=== PATIENT | male | born 1955 | race Caucasian/White ===

== ENCOUNTER 2021-06-20 03:25 | Emergency (ER) | payer MEDICARE, OTHER, SELFPAY ==
[2021-06-20 03:42] VITALS: BP 137/89; PULSE 94; RESP 18; TEMP 36.9; O2SAT 97
--- NOTE | 2021-06-20 03:46 | ED.MALEGU ---
HPI - Male Genitourinary General Chief complaint: Urogenital-Male Stated complaint: NEED A CATH PUT BACK IN - TAKEN OUT FRIDAY Time Seen by Provider: 06/20/21 03:36 Source: patient History of Present Illness HPI Narrative: Patient presents with difficulty urinating. Patient recently had a Amaral removed for urinary retention he passes voiding trial was doing well the last few this afternoon since that has been able to urinate and tonight had a lot of pressure. He is is concerned for urinary retention and he came to the ER for evaluation denies any fevers, cough, nausea, vomiting, back Related Data Home Medications Medication Instructions Recorded Confirmed Htn Med 03/12/19 Prostate Med 03/12/19 sildenafil [Viagra] 25 mg PO DAILY PRN 03/12/19 03/12/19 Allergies Allergy/AdvReac Type Severity Reaction Status Date / Time No Known Allergies Allergy Unverified 02/16/16 10:50 Review of Systems Review of Systems: CONSTITUTIONAL: Denies fever, chills, or sweats. EYES: Denies visual changes, redness, or discharge. ENT: Denies rhinorrhea, congestion, sore throat, or otalgia. CARDIOVASCULAR: Denies chest pain, palpitations, or edema. RESPIRATORY: Denies cough or dyspnea. GASTROINTESTINAL: Denies nausea, vomiting, or diarrhea. GENITOURINARY: Patient is unable to urinate SKIN: Denies rash or itching. MUSCULOSKELETAL: Denies back pain, joint pain, or myalgia. NEUROLOGIC: Denies headache, numbness, dizziness, or weakness. PSYCHIATRIC: Denies anxiety or depression. All systems reviewed & are unremarkable except as noted in HPI and below PMFSH Family History Family History Father Cerebrovascular accident Family history of coronary artery disease Sibling Family history of malignant neoplasm of cervix Family history of malignant neoplasm of brain Social History Social History Smoking status: Never smoker Alcohol intake: never Exam Narrative: GENERAL: Well-appearing, well-nourished, and in no acute distress. HEAD: Normocephalic, atraumatic. EYES: PERRLA and EOMI. ENT: Nares clear, no rhinorrhea or epistaxis. Mucous membranes moist. NECK: Supple. No masses. No JVD ABDOMEN: Mild tenderness palpation suprapubic area soft, nondistended, normal active bowel sounds. EXTREMITIES: Normal range of motion. No edema. SKIN: Warm, dry, no rash. NEURO: No focal deficits. Alert and oriented x3. PSYCH: Normal mood and affect. Course Vital Signs Vital signs: Vital Signs Temperature 36.9 C 06/20/21 03:42 Pulse Rate 94 06/20/21 03:42 Respiratory Rate 18 06/20/21 03:42 Blood Pressure 137/89 06/20/21 03:42 Pulse Oximetry 97 06/20/21 03:42 Temperature 36.9 C 06/20/21 03:42 Pulse Rate 94 06/20/21 03:42 Respiratory Rate 18 06/20/21 03:42 Blood Pressure 137/89 06/20/21 03:42 Pulse Oximetry 97 06/20/21 03:42 MDM - Male Genitourinary MDM Narrative Medical decision making narrative: H&P as above, vss, pt looks clinically well, exam mild tenderness with palpation suprapubic area, bladder scan showed 500 of fluid additional labs/img considered, symptomatic relief available as needed, Amaral catheter was placed on reevaluation pt continues to looks clinically well and reported large improvement in symptoms. Suspect acute urinary retention likely due to patient's known BPH, dns severe sepsis, pyelonephritis. Patient is already on antibiotics prescribed by his urologist. plan to tx/monitor as op w/ urology f/u findings/plan discussed with pt, pt agree/comfortable with plan, return precautions given Discharge Plan Discharge Clinical Impression: Acute retention of urine Patient Disposition: Home, Self-Care Condition: Improved Instructions: Antibiotic Form, Urinary Retention in Men (ED) Additional Instructions: Please return if your symptoms worsen or fail to improve. If you develop
== END 2021-06-20 04:25 | disposition home or self-care (01) ==
LOC: ANHED 04:03
PROVIDERS: Emergency Provider Emergency Medicine; PCP Family Medicine
DX: R33.9 Retention of urine, unspecified (principal)
CPT/HCPCS: 51702; 99283

== ENCOUNTER 2022-01-09 08:30 | Emergency (ER) | payer MEDICARE, OTHER, SELFPAY ==
[2022-01-09 08:36] VITALS: BP 143/87; PULSE 84; RESP 16; TEMP 36.8; O2SAT 98
--- NOTE | 2022-01-09 08:42 | ED.EXTPRO ---
HPI - Extremity Problem General Chief complaint: Extremity Problem,Nontraumatic Stated complaint: left finger poss infection Time Seen by Provider: 01/09/22 08:45 Source: patient Mode of arrival: ambulatory Limitations: no limitations History of Present Illness HPI Narrative: 66 y/o male presented for c/o left middle finger pain, swelling, redness for one week. Denies injury. Denies ingrown nail or cutting/biting nails or cuticle. Related Data Home Medications Medication Instructions Recorded Confirmed sildenafil 25 mg tablet (Viagra) 25 mg PO DAILY PRN Edema 03/12/19 01/09/22 lisinopril 20 mg tablet 20 mg PO DAILY 01/09/22 01/09/22 tamsulosin 0.4 mg capsule 0.4 mg PO DAILY 01/09/22 01/09/22 Allergies Allergy/AdvReac Type Severity Reaction Status Date / Time No Known Allergies Allergy Verified 01/09/22 08:46 Review of Systems Review of Systems: CONSTITUTIONAL: Denies body aches, fever, chills, or sweats. CARDIOVASCULAR: Denies chest pain, palpitations, or edema. RESPIRATORY: Denies cough or dyspnea. GASTROINTESTINAL: Denies abdominal pain, nausea, vomiting, or diarrhea. SKIN: Left middle finger swelling and drainage MUSCULOSKELETAL: Denies back pain, joint pain, or myalgia. [facility] Family History Family History Father Cerebrovascular accident Family history of coronary artery disease Sibling Family history of malignant neoplasm of cervix Family history of malignant neoplasm of brain Social History Social History Smoking status: Never smoker Alcohol intake: never Comments At time of signature, I have reviewed and agree with nursing past medical, surgical, social and family history unless otherwise noted. Please see nursing chart for further information. There is no relevant family history pertinent to the presenting complaint Exam Narrative: GENERAL: Well-appearing HEAD: Normocephalic, atraumatic. EYES: conjunctivae clear, and EOMI. ENT: Mucous membranes moist. CHEST: Clear to auscultation. HEART: Regular rate and rhythm. SKIN: Warm, dry. Left 3rd digit paronychia with mild swelling and erythema, small amount active purulent drainage expressed NEURO: Alert and oriented x3. Course Course Emergency Course: Patient is aware of diagnosis, understands and agrees to treatment plan. Anticipatory guidance given. Patient agrees to follow-up as directed and is aware of reasons to seek care at the emergency department. Portions of this record may have been created with voice recognition software Level of Care: Express Care Visit Vital Signs Vital signs: Vital Signs Temperature 98.2 F 01/09/22 08:36 Pulse Rate 84 01/09/22 08:36 Respiratory Rate 16 01/09/22 08:36 Blood Pressure 143/87 H 01/09/22 08:36 Pulse Oximetry 98 01/09/22 08:36 Oxygen Delivery Room Air 01/09/22 08:36 Temperature 98.2 F 01/09/22 08:47 Pulse Rate 84 01/09/22 08:47 Respiratory Rate 16 01/09/22 08:47 Blood Pressure 143/87 H 01/09/22 08:47 Pulse Oximetry 98 01/09/22 08:47 Oxygen Delivery Room Air 01/09/22 08:47 Reviewed MDM - Extremity (Nontraumatic) MDM Narrative Medical decision making narrative: Wound soaked in warm soapy water and cleansed. Able to express small amount purulent material from existing open site at lateral aspect of the nailbed. Pt reports tenderness. Advised supportive measures, reviewed abx, and signs/symptoms to go to the ER. Pt is appropriate for outpt treatment and f/u. Differential Diagnosis Differential diagnosis: Likely other (paronychia, felon, cellulitis, ingrown nail) Discharge Plan Discharge Clinical Impression: Paronychia Patient Disposition: Home, Self-Care Condition: Stable Instructions: Antibiotic Form, Paronychia (ED) Additional Instructions: Soak your nail: Soak your nail in a mixture of equal parts giovanny
[2022-01-09 08:47] VITALS: BP 143/87; PULSE 84; RESP 16; TEMP 36.8; O2SAT 98
== END 2022-01-09 09:26 | disposition home or self-care (01) ==
PROVIDERS: Emergency Provider Nurse Practitioner Family; PCP Family Medicine
DX: L03.012 Cellulitis of left finger (principal); I10 Essential (primary) hypertension; N40.0 Benign prostatic hyperplasia without lower urinary tract symptoms
CPT/HCPCS: 99213; G0463

== ENCOUNTER 2023-09-02 11:57 | Outpatient (CLI) | payer MEDICARE, OTHER, SELFPAY ==
--- NOTE | ~2023-09-02 | XR_ITS ---
Lumbosacral Spine: AP and lateral views Clinical History: Pain COMPARISON: 08/03/2018 Findings: There is mild dextroscoliosis. No fracture present. There is minimal grade 1 retrolisthesis of L4 on L5. There is moderate facet arthropathy throughout the lumbar spine. There is moderate dege nerative disc narrowing at L4-L5. There are mild degenerative changes at the remainder of the lumbar spine. There are multilevel anterior marginal osteophytes. The sacroiliac joints are normally outline d. Impression: Moderate degenerative spondylosis, as above. Minimal grade 1 retrolisthesis of L4 over L5. Reviewed, dictated and finalized at location M. Impression: Moderate degenerative spondylosis, as above. Minimal grade 1 retrolisthesis of L4 over L5.
== END 2023-09-02 11:58 | disposition home or self-care (01) ==
LOC: ANHIMG 12:03
PROVIDERS: PCP Family Medicine; Visit Provider Family Medicine
DX: M54.30 Sciatica, unspecified side (principal); M47.896 Other spondylosis, lumbar region; M43.16 Spondylolisthesis, lumbar region
CPT/HCPCS: 72100